=== PATIENT | male | born 1995 | race African-American/Black ===

== ENCOUNTER 2017-05-20 17:55 | Emergency (ER) | payer OTHER ==
[~2017-05-20 17:55] MED LIST: NO MEDICATIONS
== END 2017-05-20 18:35 | disposition home or self-care (01) ==
LOC: SED 17:55
DX: J06.9 Acute upper respiratory infection, unspecified (principal)
CPT/HCPCS: 99283

== ENCOUNTER 2017-06-11 22:19 | Emergency (ER) | payer OTHER ==
[~2017-06-11] VITALS: Ht 177.8 cm; Wt 65.8 kg
--- NOTE | ~2017-06-11 | CR142 ---
[facility]. [facility] A Service of [facility] & [facility] RADIOLOGY TEXT RESULTS PATIENT: NAGI LILLY LOCATION: SED : [birth year] UNIT #: [id number] AGE: [address]: Tomás Reed MD SEX: M ORDER DR: [id number] [address] [address] [id number] MR#: [id number] #: [id number] NAME: NAGI LILLY : 1995 SEX: M STUDY DATE/TIME: 06/11/2017 22:54 UNIT: SED ROOM: STUDY DESCRIPTION: CR Hand Min 3 Views Rt Attending Physician: Tomás Reed M.D. Ordering Physician: Tomás Reed M.D. Primary Care Physician: No Primary Care Physician MEDICAL IMAGING REPORT This report is preliminary unless electronic signature is present. EXAM Right hand 3 views. HISTORY Hand pain today after injury. Prior fracture. FINDINGS 3 views of the right hand demonstrate no acute findings. Old healed fracture midshaft fifth metacarpal with moderate posterior bowing of the fifth metacarpal shaft. No joint space narrowing. No dislocation. Remainder of the hand is negative. Dictated by... Dalton Lopez M.D. THIS IS AN ELECTRONICALLY VERIFIED REPORT Dalton Lopez M.D. at 06/12/2017 11:52 PM DFL/joy TD: 06/12/2017 11:44 JOB #: [id number] MEDICAL IMAGING REPORT Page 1 of 1
== END 2017-06-12 00:06 | disposition home or self-care (01) ==
LOC: SED 22:19
DX: S60.221A Contusion of right hand, initial encounter (principal); W21.05XA Struck by basketball, initial encounter; Y93.67 Activity, basketball; Y92.9 Unspecified place or not applicable
CPT/HCPCS: 73130; 99283